=== PATIENT | female | born 1990 | race Caucasian/White ===

== ENCOUNTER 2017-07-23 10:50 | Emergency (ER) | payer SELFPAY ==
[~2017-07-23] VITALS: Ht 167.6 cm; Wt 108.9 kg
[2017-07-23] MEDS ORDERED: ACETAMINOPHEN 500 MG TAB (TYLENOL) PO STA (11:39)
--- NOTE | 2017-07-23 11:44 | ED Cough/URI ---
General Chief Complaint: Cough/Cold/Flu Symptoms Stated Complaint: PRESSURE IN HEAD, BODY ACHES Nursing Triage Note: ADM TO ROOM REPORTS WOKE UP THIS AM WITH ACHES AND NOT FEELING WELL. TOOK 2 IBUPROFEN THIS AM. History of Present Illness Time seen by provider: 11:25 Initial Comments Patient reports sinus congestion, rhinitis and myalgias. She has history of seasonal allergies but does not regularly take medications. She denies any fevers. She took ibuprofen with no improvement in her symptoms. Timing/Duration: yesterday Severity/Quality: no cough Prior Episodes/Possible Cause: occasional episodes Associated Symptoms: cough, muscle aches, sinus infection Allergies and Home Medications Allergies Coded Allergies: codeine (Verified Allergy, Unknown, 07/23/17) iodine (Verified Allergy, Unknown, 07/23/17) Home Medications No Active Prescriptions or Reported Meds Constitutional: no symptoms reported, see HPI EENTM: see HPI, nose congestion, No ear discharge, No ear pain, No dental problems, No epistaxis, No throat pain, No throat swelling Respiratory: no symptoms reported, see HPI Cardiovascular: no symptoms reported, see HPI All Other Systems Reviewed Negative Unless Noted: Yes Past Aqchhbm-Ccjqek-Hpcuns Hx Patient Social History Alcohol Use: Denies Use Recreational Drug Use: No Smoking Status: Current Everyday Smoker (1 pack per day) Recent Foreign Travel: No Contact w/Someone Who Travel: No Recent Infectious Disease Expo: No Surgeries History of Surgeries: Yes (D&C) Respiratory History of Respiratory Disorde: No Cardiovascular History of Cardiac Disorders: No Neurological History of Neurological Disord: No Genitourinary History of Genitourinary Disor: No Gastrointestinal History of Gastrointestinal Di: No Musculoskeletal History of Musculoskeletal Dis: No Endocrine History of Endocrine Disorders: No Reviewed Nursing Assessment Reviewed/Agree w Nursing PMH: Yes Physical Exam Vital Signs Vital Sign - Last 12Hours 07/23/17 07/23/17 10:57 11:55 Temp 98.6 Pulse 77 Resp 18 B/P (MAP) 121/52 Pulse Ox 99 O2 Delivery Room Air Capillary Refill : Less Than 3 Seconds General Appearance: WD/WN, no apparent distress Eyes: Bilateral Eye Normal Inspection, Bilateral Eye PERRL, Bilateral Eye EOMI HEENT: PERRL/EOMI, normal ENT inspection, TMs normal, pharynx normal Neck: non-tender, full range of motion, supple, normal inspection, No lymphadenopathy (R), No lymphadenopathy (L) Respiratory: chest non-tender, lungs clear Cardiovascular: normal peripheral pulses, regular rate, rhythm, no edema Gastrointestinal: normal bowel sounds, non tender, soft Neurologic/Psychiatric: no motor/sensory deficits, alert, normal mood/affect, oriented x 3 Skin: normal color, warm/dry Lymphatic: no adenopathy Progress/Results/Core Measures Results/Orders My Orders Orders - SIENA CHAVES Acetaminophen Tablet (Tylenol Tablet) (07/23/17 11:39) Vital Signs/I&O Vital Sign - Last 12Hours 07/23/17 07/23/17 10:57 11:55 Temp 98.6 98.6 Pulse 77 77 Resp 18 18 B/P (MAP) 121/52 Pulse Ox 99 O2 Delivery Room Air Blood Pressure Mean: 75 Departure Impression Impression: Primary Impression: Allergic rhinitis Qualified Codes: J30.9 - Allergic rhinitis, unspecified Disposition: 01 HOME, SELF-CARE Condition: Improved Departure-Patient Inst. Decision time for Depature: 11:35 Referrals: NO,LOCAL PHYSICIAN (PCP/Family) Primary Care Physician Patient Instructions: Controlling Your Blood Pressure Through Lifestyle, Cough , Runny Nose, and the Common Cold (DC), Seasonal Allergies (DC) Add. Discharge Instructions: Alternate between ibuprofen 800 mg and Tylenol 650 mg every 4 hours. Fabián Med Sinus irrigation or Joanne pot every 3-4 hours. Use stdq-dey-xyhntnt allergy nasal spray, such as Nasonex or Flonase. Use as directed on label. Kmgk-cmf-zlfinkj allergy medicine, Zyrtec or Claritin. Return to emergency department for fever greater than 101, new problems or concerns. Establish care at [facility] for blood pressure check in approximately 2- 3 weeks. All discharge instructions reviewed with patient and/or family. Voiced understanding. Scripts No Active Prescriptions or Reported Meds SIENA CHAVES Jul 23, 2017 11:44
[2017-07-23 11:55] VITALS: BP 121/52
== END 2017-07-23 11:55 | disposition home or self-care (01) ==
LOC: ER 10:52
DX: J30.9 Allergic rhinitis, unspecified (principal); F17.210 Nicotine dependence, cigarettes, uncomplicated
CPT/HCPCS: 99283